=== PATIENT | male | born 1995 | race Caucasian/White ===

== ENCOUNTER 2023-01-10 19:11 | Emergency (ER) | payer OTHER, MEDICAID, SELFPAY ==
[2023-01-10 19:13] VITALS: BP 129/76; PULSE 96; RESP 18; TEMP 37.1; O2SAT 98; BMI 23.6
[2023-01-10] MEDS: OLANZapine ODT 10 MG TAB PO (19:40)
--- NOTE | 2023-01-10 19:41 | CM.SWNOTE ---
RECEPTION CENTRE MANAGER Assessment Note Patient is 27 y/o male who presents to ED voluntarily due to concern for hearing voices and chest pain. Patient endorses hx of Schitzophrenia and states he stopped taking his medications. In triage patient endorses he is prescribed: Depakote, Olanzapine, Buproprion and Adderall. RECEPTION CENTRE MANAGER meets with patient outside of triage room. Patient presents as A/Ox4, presents as fatigued, responding to internal stimuli but is coherent. Patient endorses he uses Methamphetamine. Per pusher operator, patient stated he used methamphetamine prior to coming to ED. Patient endorses concern for the voices he has been hearing in the last week. Patient endorses voices are telling him intrusive HI and SI statements such as Kill, kill, kill. Patient endorses SI thoughts of using a gun or overdose on drugs. Patient endorses awareness to classroom paraprofessional stating that he knows voices are not real and denies intention of following through with what voices are telling him. Patient endorses that the voices are evil spirits. Patient endorses hx of hospitalization but due to presentation cannot tell where and when patient was hospitalized. Patient endorses he has a psychiatrist Dr. Peterson. Patient endorses he is homeless and not from around this local area, patient is unable to endorse where he is from and where he is staying. Patient endorses that he is seeking voluntary Behavioral Health hospitalization and would like to get back on his medication. It is the opinion of this RECEPTION CENTRE MANAGER that patient is appropriate for and will benefit from voluntary inpatient hospitalization for safety, crisis stabilization and medication management. RECEPTION CENTRE MANAGER to review the above with ED provider. Plan: Upon medical clearance ED team to seek voluntary inpatient bed for patient. NILDA PickettSW
[2023-01-10 19:50] LABS: Add Manual Diff / Slide Review NO; Basophils Absolute Auto 100 /uL (0-100); Basophils Percent Auto 0.6 % (0-2); Eosinophils Absolute Auto 200 /uL (0-450); Eosinophils Percent Auto 1.6 % (2-4); Hematocrit 37.7 % (41-53); Hemoglobin 12.9 g/dL (13.5-17.5); Lymphocytes Absolute Auto 2900 /uL (1100-4500); Lymphocytes Percent Auto 24.6 % (25-40); Mean Corpuscular HGB Conc 34.1 % (30-36); Mean Corpuscular Hemoglobin 29.1 PG (26-34); Mean Corpuscular Volume 85.2 fL (80-100); Monocytes Absolute Auto 1000 /uL (0-900); Neutrophils Absolute Auto 7700 /uL (1500-7000); Neutrophils Percent Auto 65.2 % (50-75); Platelet Count 356 X10^3/uL (150-400); Red Blood Cell Count 4.43 X10^6/uL (4.5-5.9); Red Cell Distribution Width 14.1 % (11.6-14.8); White Blood Cell Count 11.8 X10^3/uL (4.5-11.0)
[2023-01-10 20:05] LABS: COVID19 -Nasal RAPID Negative (Negative)
[2023-01-10 20:08] LABS: Acetaminophen < 10 ug/mL (10-30); Alanine Aminotransferase 32 IU/L (<50); Albumin 3.6 g/dL (3.5-5.0); Albumin Globulin Ratio 1.4 (1.0-2.8); Alkaline Phosphatase 75 U/L (38-126); Aspartate Aminotransferase 29 IU/L (17-59); BUN Creatinine Ratio 11.7 (6-22); Bilirubin Total 0.2 mg/dL (0.2-1.3); Blood Urea Nitrogen 16 mg/dL (9-20); Calcium 8.8 mg/dL (8.4-10.2); Carbon Dioxide 31 mmol/L (22-32); Chloride 104 mmol/L (98-107); Estimated Glomerular Filt Rate > 60 mL/min (>60); Ethanol (ETOH) < 10 mg/dL; Globulin 2.5 g/dL (1.7-4.1); Glucose 89 mg/dL (70-100); HEMOLYSIS < 15 (0-50); Potassium 4.2 mmol/L (3.4-5.1); Salicylate < 1.0 mg/dL (<20); Sodium 139 mmol/L (137-145); Total Protein 6.1 g/dL (6.3-8.2)
[2023-01-10 20:09] LABS: UR Morphine/Opiate cutoff 300 Negative (Negative); Ur Creatinine Normal (Normal); Ur Specific Gravity Normal (Normal); Urine Amphetamines Positive (Negative); Urine Barbiturates Negative (Negative); Urine Benzodiazepines Negative (Negative); Urine Cocaine Negative (Negative); Urine MDMA Negative (Negative); Urine Methadone Negative (Negative); Urine Methamphetamines Positive (Negative); Urine Oxycodone Negative (Negative); Urine Phencyclidine Negative (Negative); Urine Tetrahydrocannabinol Positive (Negative); Urine Tricyclic Antidepressant Negative (Negative); Urine pH Normal (Normal)
--- NOTE | 2023-01-10 20:15 | ED_ITS ---
HPI - Psych General Chief Complaint: Psychiatric Symptoms Stated Complaint: Chest pain, Hearing voices Time Seen by Provider: 01/10/23 19:52 Source: patient Mode of arrival: Ambulatory History of Present Illness HPI Narrative: Patient here for voluntary admission for exacerbation of schizophrenia and bipolar disease. He states he has been hearing voices to hurt himself or hurt others. He is not acted on these. He does not wish to hurt others or himself. Patient does admit polysubstance abuse. He states it has been nearly a year s ismael his last admission for exacerbation of his mental illness. No recent illness otherwise. Patient is cooperative. In no distress. Patient is homeless. Related Data Allergies Allergy/AdvReac Type Severity Reaction Status Date / Time No Known Drug Allergies Allergy Verified 01/10/23 19:40 Review of Systems Review of Systems Narrative: GENERAL: negative chills, fatigue, malaise, fever, sweats. HEENT: negative sinus pain, ear pain, sore throat RESPIRATORY: negative dyspnea, cough CARDIOVASCULAR: negative chest pain, palpitations GASTROINTESTINAL: negative nausea, vomiting, abdominal pain : negative dysuria, frequency, hematuria MUSCULOSKELETAL: negative muscle or bony pain SKIN: negative rash, skin lesions NEUROLOGIC: negative weakness, numbness Psych: Positive auditory hallucinations, negative SI negative HI ROS Unobtainable: All systems reviewed & are unremarkable except as noted in HPI and below Patient History Social History Smoking Status: Current every day smoker Smoking Status: Current every day smoker Substance Use Type: marijuana and methamphetamine Exam Narrative Exam Narrative: GENERAL: in no distress, not toxic not dyspneic HEAD: Normocephalic. EYES: Pupils equal round ENT: Mucous membranes moist. NECK: Trachea midline. CARDIOVASCULAR: Regular rate and rhythm without murmurs RESPIRATORY: Clear to auscultation. Breath sounds equal bilaterally. No wheezes, rales, or rhonchi. GASTROINTESTINAL: Abdomen soft, non-tender EXTREMITIES: No gross deformities. BACK: No flank tenderness. NEURO: AOx4. Clear speech. Steady self gait SKIN: Warm and dry PSYCH: Not anxious, is cooperative, positive auditory hallucinations, does not want hurt himself or others. Initial Vital Signs Initial Vital Signs: Vital Signs Temperature 98.7 F 01/10/23 19:13 Pulse Rate 96 H 01/10/23 19:13 Respiratory Rate 18 01/10/23 19:13 Blood Pressure 129/76 01/10/23 19:13 Pulse Oximetry 98 01/10/23 19:13 Oxygen Delivery Method Room Air 01/10/23 19:13 Course Orders Ordered: ED Orders 01/10/23 19:30 Acetaminophen Stat Complete Blood Count AUTO DIFF Stat Comprehensive Metabolic Panel Stat Ethanol (ETOH) Stat Free T4, Direct Thyroxine Stat Salicylate Stat Thyroid Stimulating Hormone Stat Urine Drug Screen, Rapid Stat Valproic Acid (Depakene) Total Stat 01/10/23 19:40 Consult to [facility] [place] Medical Manager Stat Discontinued Medications Olanzapine (Olanzapine Odt 10 Mg Tab) 10 mg PO NOW ONE Stop: 01/10/23 19:39 Last Admin: 01/10/23 19:40 Dose: 10 mg Documented By: DEEPIKA Vital Signs Vital signs: Vital Signs - 8 hr 01/11/23 00:18 Temperature 97.3 F L Pulse Rate 72 Respiratory Rate 16 Blood Pressure 116/66 Pulse Oximetry 100 Oxygen Delivery Method Room Air MDM - Psych Lab Data 01/10/23 19:30 01/10/23 19:30 Labs: Lab Results 01/10/23 01/10/23 01/10/23 Range/Units 18:30 19:30 19:30 WBC 11.8 H (4.5-11.0) X10^3/uL RBC 4.43 L (4.5-5.9) X10^6/uL Hgb 12.9 L (13.5-17.5) g/dL Hct 37.7 L (41-53) % MCV 85.2 (80-100) fL MCH 29.1 (26-34) PG MCHC 34.1 (30-36) % RDW 14.1 (11.6-14.8) % Plt Count 356 (150-400) X10^3/uL Neut % (Auto) 65.2 (50-75) % Lymph % (Auto) 24.6 L (25-40) % [place] % (Auto) 8.0 (3-14) % Eos % (Auto) 1.6 L (2-4) % Baso % (Auto) 0.6 (0-2) % Neut # (Auto) 7700 H (5732-5180) /uL Lymph # (Auto) 2900 (7502-2869) /uL [place] # (Auto) 1000 H (0-900) /uL Eos # (Auto) 200 (0-450) /uL Baso # (Auto) 100 (0-100) /uL Sodium 139 (137-145) mmol/L Potassium 4.2 (3.4-5.1) mmol/L Chloride 104 (98-107) mmol/L Carbon Dioxide 31 (22-32) mmol/L BUN 16 (9-20) mg/dL Creatinine 1.37 H (0.66-1.25) mg/dL Estimated GFR > 60 (>60) mL/min BUN/Creatinine Ratio 11.7 (6-22) Glucose 89 (70-100) mg/dL Calcium 8.8 (8.4-10.2) mg/dL Total Bilirubin 0.2 (0.2-1.3) mg/dL AST 29 (17-59) IU/L ALT 32 (<50) IU/L Alkaline Phosphatase 75 (38-126) U/L Total Protein 6.1 L (6.3-8.2) g/dL Albumin 3.6 (3.5-5.0) g/dL Globulin 2.5 (1.7-4.1) g/dL Albumin/Globulin Ratio 1.4 (1.0-2.8) TSH (0.47-4.68) uIU/mL Free T4 (0.78-2.19) ng/dL Salicylates < 1.0 (<20) mg/dL U Opiates 300ng/mL cut (Negative) Ur Oxycodone Screen (Negative) Urine Methadone Screen (Negative) Acetaminophen < 10 (10-30) ug/mL Ur Barbiturates Screen (Negative) U Tricyclic Antidepress (Negative) Ur Phencyclidine Scrn (Negative) Ur Amphetamines Screen (Negative) U Methamphetamines Scrn (Negative) Ur MDMA Scrn (Ecstasy) (Negative) U Benzodiazepines Scrn (Negative) Urine Cocaine Screen (Negative) U Marijuana (THC) Screen (Negative) Ethyl Alcohol < 10 ( - 10) mg/dL SARS-CoV-2 (PCR) Negative (Negative) 01/10/23 01/10/23 Range/Units 19:30 19:30 WBC (4.5-11.0) X10^3/uL RBC (4.5-5.9) X10^6/uL Hgb (13.5-17.5) g/dL Hct (41-53) % MCV (80-100) fL MCH (26-34) PG MCHC (30-36) % RDW (11.6-14.8) % Plt Count (150-400) X10^3/uL Neut % (Auto) (50-75) % Lymph % (Auto) (25-40) % [place] % (Auto) (3-14) % Eos % (Auto) (2-4) % Baso % (Auto) (0-2) % Neut # (Auto) (7548-0261) /uL Lymph # (Auto) (2000-8719) /uL [place] # (Auto) (0-900) /uL Eos # (Auto) (0-450) /uL Baso # (Auto) (0-100) /uL Sodium (137-145) mmol/L Potassium (3.4-5.1) mmol/L Chloride (98-107) mmol/L Carbon Dioxide (22-32) mmol/L BUN (9-20) mg/dL Creatinine (0.66-1.25) mg/dL Estimated GFR (>60) mL/min BUN/Creatinine Ratio (6-22) Glucose (70-100) mg/dL Calcium (8.4-10.2) mg/dL Total Bilirubin (0.2-1.3) mg/dL AST (17-59) IU/L ALT (<50) IU/L Alkaline Phosphatase (38-126) U/L Total Protein (6.3-8.2) g/dL Albumin (3.5-5.0) g/dL Globulin (1.7-4.1) g/dL Albumin/Globulin Ratio (1.0-2.8) TSH 0.672 (0.47-4.68) uIU/mL Free T4 1.06 (0.78-2.19) ng/dL Salicylates (<20) mg/dL U Opiates 300ng/mL cut Negative (Negative) Ur Oxycodone Screen Negative (Negative) Urine Methadone Screen Negative (Negative) Acetaminophen (10-30) ug/mL Ur Barbiturates Screen Negative (Negative) U Tricyclic Antidepress Negative (Negative) Ur Phencyclidine Scrn Negative (Negative) Ur Amphetamines Screen Positive H (Negative) U Methamphetamines Scrn Positive H (Negative) Ur MDMA Scrn (Ecstasy) Negative (Negative) U Benzodiazepines Scrn Negative (Negative) Urine Cocaine Screen Negative (Negative) U Marijuana (THC) Screen Positive H (Negative) Ethyl Alcohol ( - 10) mg/dL SARS-CoV-2 (PCR) (Negative) Urine Dip Bedside Urine Glucose Negative Bedside Urine Bilirubin - Negative Bedside Urine Ketone - Negative Urine Specific [place] 1.01 Bedside Urine Occult Blood - Negative Bedside Urine pH 6.5 Bedside Urine Protein - Negative Bedside Urine Urobilinogen - Negative Bedside Urine Nitrite - Negative Bedside Urine Leukocytes - Negative Esterase MDM Narrative Medical decision making narrative: Patient here for voluntary admission for exacerbation of schizophrenia and bipolar disease. He states he has been hearing voices to hurt himself or hurt others. He is not acted on these. He does not wish to hurt others or himself. Patient does admit polysubstance abuse. He states it has been nearly a year since his last admission for exacerbation of his mental illness. No recent illness otherwise. Patient is cooperative. In no distress. Patient is h omeless. After history and exam CBC CMP drug screen alcohol level social work consult MDM CC: Auditory hallucination Complicating co-morbidities: Schizophrenia bipolar Data collected from: Patient Medical records reviewed: No recent visits here for this complaint Differential considered: Includes but not limited to acute psychosis/bipolar/schizophrenia/polysubstance abuse Exam documented above, pertinent findings include: Patient is cooperative. Lab Test results independently reviewed as above. Pertinent findings: WBC 11.8 sodium 139 potassium 4.2 drug screen positive amphetamines methamphetamines marijuana COVID negativ Consultations: Social WorkTavia, has seen patient and finding placement, [facility] Patient [facility] been [facility] Treatments: Zyprexa Re-evaluations: Patient agrees for transfer to [facility] voluntarily. Discussion: Appropriate for transfer for behavioral health services. Patient is voluntarily going. Diagnosis: Bipolar schizophrenia Discharge Plan Departure Patient Disposition: Xfer Psychiatric Hosp Clinical Impression: Acute psychosis, Chronic schizophrenia, Bipolar disorder
[2023-01-10 20:24] LABS: Free T4, Direct Thyroxine 1.06 ng/dL (0.78-2.19)
[2023-01-10 20:38] LABS: Thyroid Stimulating Hormone 0.672 uIU/mL (0.47-4.68)
[2023-01-11 00:18] VITALS: BP 116/66; PULSE 72; RESP 16; TEMP 36.3; O2SAT 100
[2023-01-12 00:08] LABS: Valproic Acid (Depakene) Total < 4 ug/mL (50-100)
== END 2023-01-11 00:20 ==
PROVIDERS: Emergency Provider Emergency Medicine
DX: F23 Brief psychotic disorder (principal); F20.9 Schizophrenia, unspecified; F31.9 Bipolar disorder, unspecified; Z20.822 Contact with and (suspected) exposure to COVID-19
CPT/HCPCS: 80053; 80164; 80305; 80320; 80329; 81003; 84439; 84443; 85025; 87635; 99284; C9803; G0480